=== PATIENT | female | born 1960 | race Hispanic/Latino ===

== ENCOUNTER 2020-11-11 06:57 | Day surgery (SDC) | payer OTHER ==
[~2020-11-11] VITALS: Ht 162.6 cm; Wt 63.5 kg
[~2020-11-11 06:57] MED LIST: VITAMIN B 650 MG PO
[2020-11-11 08:59] VITALS: BP 98/64
== END 2020-11-11 08:55 | disposition home or self-care (01) | DRG 951 ==
LOC: ENDO 06:57
PROVIDERS: ATTEND Surgery
PROC: 0DJD8ZZ Inspection of Lower Intestinal Tract, Via Natural or Artificial Opening Endoscopic (ICD-10-PCS; principal; 2020-11-11)
DX: Z12.11 Encounter for screening for malignant neoplasm of colon (principal); K64.8 Other hemorrhoids; F17.210 Nicotine dependence, cigarettes, uncomplicated; Z83.71 Family history of colonic polyps